=== PATIENT | male | born 1990 | race African-American/Black ===

== ENCOUNTER 2017-10-31 15:54 | Emergency (ER) | payer MEDICAID ==
[~2017-10-31] VITALS: Ht 165.1 cm; Wt 121.0 kg
[2017-10-31 16:33] VITALS: BP 148/112
== END 2017-10-31 22:13 | disposition left against medical advice (07) ==
LOC: ER 22:06
DX: R51 Headache (principal); I10 Essential (primary) hypertension
CPT/HCPCS: 99281

== ENCOUNTER 2017-11-16 18:04 | Emergency (ER) | payer MEDICAID ==
[~2017-11-16] VITALS: Ht 172.7 cm; Wt 116.0 kg
[2017-11-16 20:06] VITALS: BP 165/88
== END 2017-11-16 20:47 | disposition left against medical advice (07) ==
LOC: ER 18:04
DX: R10.9 Unspecified abdominal pain (principal); Z53.21 Procedure and treatment not carried out due to patient leaving prior to being seen by health care provider

== ENCOUNTER 2021-10-20 11:23 | Emergency (ER) | payer MEDICAID ==
[~2021-10-20] VITALS: Ht 172.7 cm; Wt 126.0 kg
[2021-10-20] MEDS ORDERED: ONDANSETRON 4MG ODT PO STA (11:41)
[2021-10-20 12:46] LABS: HEMATOCRIT. 40.7 % (42.0-52.0); HEMOGLOBIN. 13.2 g/dL (14.0-18.0); MEAN CORPUSCULAR HEMOGLOBIN 28.7 pg (28.0-32.0); MEAN CORPUSCULAR VOLUME 88.3 fL (80.0-94.0); MEAN PLATELET VOLUME 8.7 fl (7.4-10.4); PLATELET 259 x1000/uL (130-400); RED CELL DISTRIBUTION WIDTH 13.1 % (11.6-14.6)
[2021-10-20 12:55] LABS: CHLORIDE 106 mEq/L (98-107)
[2021-10-20] MEDS ORDERED: IBUPROFEN 600MG TABLET PO ONE (13:00)
[2021-10-20 13:14] VITALS: BP 144/77
[2021-10-20 13:26] LABS: PLATELET ESTIMATE NORMAL
== END 2021-10-20 14:22 | disposition left against medical advice (07) ==
LOC: ER 11:23
DX: J02.9 Acute pharyngitis, unspecified (principal); R05.9 Cough, unspecified; M79.605 Pain in left leg; I10 Essential (primary) hypertension; Z98.890 Other specified postprocedural states
CPT/HCPCS: 36415; 71045; 80053; 85025; 99284